=== PATIENT | male | born 1980 | race Caucasian/White ===

== ENCOUNTER 2024-03-16 01:05 | Emergency (ER) | payer OTHER ==
[~2024-03-16] VITALS: Ht 180.3 cm; Wt 77.1 kg
[2024-03-16 03:48] VITALS: BP 110/70; TEMP 98.1; O2SAT 99
[2024-03-16] MEDS ORDERED: CLIN300C12 PO (04:15)
[2024-03-16] MEDS ORDERED: CLINDAMYCIN HCL 150 MG CAPSULE ONE (04:16)
[2024-03-16] MEDS ORDERED: IBUPROFEN 400 MG TABLET ONE (04:16)
[2024-03-16] MEDS: IBUPROFEN 400 MG TABLET PO ONE (04:21)
[2024-03-16] MEDS: CLINDAMYCIN HCL 150 MG CAPSULE PO ONE (04:21)
== END 2024-03-16 04:21 | disposition home or self-care (01) ==
LOC: ER 01:05
DX: L03.317 Cellulitis of buttock (principal); L03.818 Cellulitis of other sites